=== PATIENT | female | born 1980 | race African-American/Black ===

== ENCOUNTER 2017-01-17 00:13 | Emergency (ER) | payer BC ==
[~2017-01-17] VITALS: Ht 160 cm; Wt 86.2 kg
[~2017-01-17 00:13] MED LIST: HYDR-2758 PO; IBUP200T43 PO
[2017-01-17 00:30] VITALS: BP 123/93
[2017-01-17] MEDS ORDERED: CONTRAST GIVEN MC PRN (02:45)
[2017-01-17] MEDS ORDERED: IOHEXOL 300 MG/ML 75 ML VIAL. IV ONE (02:45)
[2017-01-17] MEDS ORDERED: KETOROLAC 30 MG/ML VIAL. IV ONE (02:45)
--- NOTE | 2017-01-17 03:31 | PHYS DOC ---
General Chief Complaint: ABDOMINAL PAIN Stated Complaint: LEFT SIDE ABDOMINAL AND LEG PAIN Time Seen by MD: 00:32 Source: patient Exam Limitations: no limitations Problems: History of Present Illness Initial Comments Patient is a 36-year-old female who comes to the ED complaining of abdominal discomfort. Patient states she is having left adnexal/lower quadrant abdominal discomfort "feels just like my endometriosis." She follows with Dr. Jarrell for gynecology states she is on medications and prevented her from having visual periods. Pain is described as crampy moderate not relieved with ibuprofen no fever chills nausea vomiting bowel or bladder symptoms. Appetite is intact patient had a prolonged wait prior to my being able to see her due to a critical patient and procedure in the trauma room. ED vital signs are stable patient is driving and understands no narcotic medications can be given if she intends to drive home. Last bowel movement was yesterday described as normal. Patient denies any vaginal discharge or bleeding no dyspareunia. Timing/Duration: 24 hours, constant Severity: moderate Modifying Factors: improves with other Associated Symptoms: other Allergies: Coded Allergies: No Known Drug Allergies (Unverified , 03/19/14) verified with the pt Past Medical History Medical History: other (endometriosis, anxiety, osteoarthritis, ovarian cyst) Surgical History: other ( section tonsillectomy) Family History Significant Family History: no pertinent family hx Social History Smoker: non-smoker Alcohol: none Drugs: none Review of Systems Constitutional: denies chills, denies diaphoresis, denies fever, denies malaise Respiratory: denies cough, denies shortness of breath Cardiovascular: denies chest pain, denies palpitations Gastrointestinal: see HPI Genitourinary: see HPI Musculoskeletal: denies back pain, denies joint swelling, denies neck pain Psychiatric/Neurological: denies headache, denies numbness, denies paresthesia Hematologic/Lymphatic: denies blood clots, denies easy bleeding, denies easy bruising Physical Exam General Appearance: no apparent distress, obese Ear, Nose, Throat: hearing grossly normal, normal ENT inspection Neck: non-tender, supple Respiratory: normal breath sounds, no respiratory distress Cardiovascular: normal peripheral pulses, regular rate, rhythm Gastrointestinal: normal bowel sounds, non tender, soft, no organomegaly, no pulsatile mass Rectal: deferred Back: no CVA tenderness, no vertebral tenderness Extremities: non-tender, normal inspection 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 RN said difficult time accessing IV site. RN just notified me that the patient is wanting to go home and follow-up with her [employer] Dr Jarrell. Patient understands that as she is driving were unable to give sedative medications here in the department but will give Tylenol 3 start pack and a short course of Ambrose and Zofran ODT to get her by until she can get in. Urine negative Departure Time of Disposition: 03:28 Disposition: HOME, SELF-CARE Diagnosis: abdominal pain Condition: IMPROVED Patient Instructions: Abdominal Pain (Nonspecific) Additional Instructions: No driving or operating machinery while taking sedative medications. Rulk-sek-hyuohis stool softeners to avoid constipation related to pain medications. Aggressive hydration with Gatorade or water. Rfxe-eof-torlmqk ibuprofen for baseline discomfort. Prescription: Ambrose 5 mg quantity 15, Zofran ODT A Tylenol 3 starter pack was dispensed to you in the emergency department. Take 1-2 every 6 hours with food as needed for severe pain. Follow-up with your [employer] Dr. Jarrell for next available appointment for hospital recheck and further evaluation and treatment as discussed. Call their office upon opening later this morning to schedule. Return to ED with new or changing symptoms. SABA LAMB DO Jan 17, 2017 03:30
[2017-01-17] MEDS ORDERED: ONDA4TAB10 PO (03:32)
[2017-01-17] MEDS ORDERED: HYDR-971 PO (03:32)
[2017-01-17] MEDS ORDERED: ACETAMINOPHEN/CODEINE 300/30MG 4TABLET STARTPACK. PO ONE ×2 (03:40→03:45)
== END 2017-01-17 03:45 | disposition home or self-care (01) ==
LOC: ER 00:13
DX: R10.32 Left lower quadrant pain (principal); R10.2 Pelvic and perineal pain; M19.90 Unspecified osteoarthritis, unspecified site; F41.9 Anxiety disorder, unspecified; Z98.890 Other specified postprocedural states
CPT/HCPCS: 81025; 99284

== ENCOUNTER 2019-06-22 10:10 | Emergency (ER) | payer BC ==
[~2019-06-22] VITALS: Ht 160 cm; Wt 89.0 kg
[~2019-06-22 10:10] MED LIST changes: +HYDR-2155 PO; -HYDR-2758 PO; +HYDR-3165 PO; -IBUP200T43 PO; +IBUP200T44 PO; +ONDA4TAB10 PO
[2019-06-22 10:17] VITALS: BP 131/93
[2019-06-22] MEDS ORDERED: IV NORMAL SALINE 1,000ML 1,000 ML IV SCH (10:20)
[2019-06-22 10:38] LABS: BASO # 0.1 x10^3/uL (0.0-0.2); BASO % 1 % (0-3); EOS # 0.1 x10^3/uL (0.0-0.7); EOS % 1 % (0-3); HEMATOCRIT 36.9 % (36.0-47.0); HEMOGLOBIN 12.3 g/dL (12.0-15.5); LYMPH # 1.5 x10^3/uL (1.0-4.8); LYMPH % 29 % (24-48); MEAN CORPUSCULAR HEMOGLOBIN 28 pg (25-35); MEAN CORPUSCULAR HGB CONC 33 g/dL (31-37); MEAN CORPUSCULAR VOLUME 85 fL (79-100); MONO # 0.5 x10^3/uL (0.0-1.1); MONO % 10 % (0-9); NEUT % 59 % (31-73); PLATELET COUNT 469 x10^3/uL (140-400); RED BLOOD COUNT 4.34 x10^6/uL (3.50-5.40); RED CELL DISTRIBUTION WIDTH 14.1 % (11.5-14.5); WHITE BLOOD COUNT 5.1 x10^3/uL (4.0-11.0)
--- NOTE | 2019-06-22 10:38 | PHYS DOC ---
Past History Past Medical History: Anxiety, Arthritis, Ovarian Cyst, Other Past Surgical History: , Tonsillectomy Alcohol Use: None Drug Use: None General Adult EDM: Chief Complaint: CHEST PAIN HPI: HPI: 39-year-old female presents with chest pain. The pain started yesterday while she was at work. 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 It was not worse with exertion. It did not seem to improve with rest. It started as a sharp pain between her shoulder blades. It faded throughout the evening. When the patient woke up it was still there, but mild. It also was radiating around to her central chest. She went ahead and went to work. After getting to work the pain increased in her chest up to a 7 out of 10. She describes it as a heaviness with a sharp quality. It is not a stabbing pain. She went to her primary care physician who gave her 324 of aspirin and nitro spray. This reduce the pain to 1 out of 10. The patient's current pain level is 1 out of 10. She has never had chest pain before. She has no cardiac history. Review of Systems: Review of Systems: Constitutional: Denies fever or chills Eyes: Denies change in visual acuity HENT: Denies nasal congestion or sore throat Respiratory: Denies cough or shortness of breath Cardiovascular: Denies chest pain or edema GI: Denies abdominal pain, nausea, vomiting, bloody stools or diarrhea : Denies dysuria Musculoskeletal: Denies back pain or joint pain Integument: Denies rash Neurologic: Denies headache, focal weakness or sensory changes Endocrine: Denies polyuria or polydipsia Lymphatic: Denies swollen glands Psychiatric: Denies depression or anxiety Heart Score: HEART Score for Chest Pain: HEART Score for Chest Pain Response (Comments) Value History Slighlty/Non-Suspicious 0 ECG Normal 0 Age < 45 0 Risk Factors 1 or 2 Risk Factors 1 Troponin < Normal Limit 0 Total 1 Risk Factors: Risk Factors: DM, Current or recent (<one month) smoker, HTN, HLP, family history of CAD, obesity. Risk Scores: Score 0 - 3: 2.5% MACE over next 6 weeks - Discharge Home Score 4 - 6: 20.3% MACE over next 6 weeks - Admit for Clinical Observation Score 7 - 10: 72.7% MACE over next 6 weeks - Early Invasive Strategies Current Medications: Current Meds: Current Medications Medications (Trade) Dose Ordered Sig/Macho Start Time Stop Time Status Last Admin Dose Admin Sodium Chloride 1,000 ml @ 1,000 mls/hr Q1H 06/22/19 10:20 06/22/19 11:19 Allergies: Allergies: Allergies Coded Allergies Type Severity Reaction Last Updated Verified No Known Drug Allergies 03/19/14 No Physical Exam: PE: Constitutional: Well developed, obese, well nourished, no acute distress, non- toxic appearance. [] HENT: Normocephalic, atraumatic, bilateral external ears normal, oropharynx moist, no oral exudates, nose normal. [] Eyes: PERRLA, EOMI, conjunctiva normal, no discharge. [] Neck: Normal range of motion, no tenderness, supple, no stridor. [] Cardiovascular: Heart rate regular rhythm, no murmur [] Lungs & Thorax: Bilateral breath sounds clear to auscultation [] Abdomen: Bowel sounds normal, soft, no tenderness, no masses, no pulsatile masses. [] Skin: Warm, dry, no erythema, no rash. [] Back: No tenderness, no CVA tenderness. [] Extremities: No tenderness, no cyanosis, no clubbing, ROM intact, no edema. [] Neurologic: Alert and oriented X 3, normal motor function, normal sensory function, no focal deficits noted. [] Psychologic: Affect normal, judgement normal, mood normal. [] Current Patient Data: Vital Signs: Vital Signs Date Time Temp Pulse Resp B/P (MAP) Pulse Ox O2 Delivery O2 Flow Rate FiO2 06/22/19 10:17 98.0 75 16 131/93 (106) 100 Room Air EKG: EKG: Sinus rhythm, rate 71, normal axis, no ST elevations or depressions. [] Radiology/Procedures: Radiology/Procedures: [] Impressions: PORTABLE CHEST 1V Clinical History: Chest pain Technique: AP view of the chest was obtained at 06/22/2019 10:20 AM. Comparison: None. Findings: The cardiomediastinal silhouette is normal. The pulmonary vasculature is normal. The lungs and pleural margins are clear. Impression: No evidence of an acute cardiopulmonary process. Electronically signed by: Xenia Celis III, MD (06/22/2019 10:52 AM) [id number] DICTATED AND SIGNED BY: XENIA CELIS III, MD DATE: 06/22/19 1052 CC: RAMIREZ ODONNELL DO; MIGUEL ANGEL ROBBINS MD ~ Course & Med Decision Making: Course & Med Decision Making Pertinent Labs and Imaging studies reviewed. (See chart for details) The patient's labs are unremarkable. Her chest x-ray is unremarkable. Her troponin is negative. Her EKG is unremarkable. The patient's pain was made better with nitro, but this does not rule out alternative explanations to cardiac pain. I do not see any evidence of cardiopulmonary cause at this time. Advised the patient follow-up closely with her primary care physician. If this pain returns, she should come back to the emergency room. Her heart score is a 1. She is stable for discharge at this time. [] Dragon Disclaimer: Dragon Disclaimer: This electronic medical record was generated, in whole or in part, using a voice recognition dictation system. Departure Departure: Impression: Primary Impression: Chest pain Qualified Codes: R07.9 - Chest pain, unspecified Disposition: HOME, SELF-CARE Condition: STABLE Referrals: MIGUEL ANGEL ROBBINS MD (PCP) Patient Instructions: Chest Pain (Nonspecific), [id number] RAMIREZ ODONNELL DO Jun 22, 2019 10:38
[2019-06-22 10:46] LABS: CALCIUM 8.7 mg/dL (8.5-10.1); CREATININE 0.7 mg/dL (0.6-1.0); GFR 113.9
[2019-06-22 10:54] LABS: ALBUMIN 3.7 g/dL (3.4-5.0); ALBUMIN/GLOBULIN RATIO 1.2 (1.0-1.7); TOTAL BILIRUBIN 0.4 mg/dL (0.2-1.0); TOTAL PROTEIN 6.9 g/dL (6.4-8.2)
--- NOTE | 2019-06-22 10:56 | RAD ---
PORTABLE CHEST 1V Clinical History: Chest pain Technique: AP view of the chest was obtained at 06/22/2019 10:20 AM. Comparison: None. Findings: The cardiomediastinal silhouette is normal. The pulmonary vasculature is normal. The lungs and pleural margins are clear. Impression: No evidence of an acute cardiopulmonary process. Electronically signed by: Contreras Celis III, MD (06/22/2019 10:52 AM) [id number]
--- NOTE | 2019-06-22 17:45 | EKG ---
[address] [address] Test Date: 2019-06-22 Test Time: 10:28:23 Pat Name: OLYA KEVIN Department: Room: Gender: F Director Payment: : 1980 Requested By: RAMIREZ ODONNELL Order Number: [id number] Reading MD: Christ Harris MD Measurements Intervals [place] Rate: 71 P: 31 AR: 132 QRS: 24 QRSD: 84 T: 21 QT: 380 QTc: 418 Interpretive Statements SINUS RHYTHM Electronically Signed On 06-23-2019 9:42:33 CDT by Christ Harris MD
== END 2019-06-22 11:20 | disposition home or self-care (01) ==
LOC: ER 10:10
DX: R07.89 Other chest pain (principal); F41.9 Anxiety disorder, unspecified; M19.90 Unspecified osteoarthritis, unspecified site
CPT/HCPCS: 36415; 71045; 80053; 84484; 85025; 93005; 99285

== ENCOUNTER 2020-11-08 16:01 | Emergency (ER) | payer OTHER, BC ==
[~2020-11-08] VITALS: Ht 160 cm; Wt 88.4 kg
[2020-11-08 16:23] VITALS: BP 155/80
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
[2020-11-08] MEDS: KETOROLAC 30 MG/ML VIAL. IM ONE (16:56)
[2020-11-08] MEDS ORDERED: HYDR-2155 PO (17:03)
[2020-11-08] MEDS ORDERED: ORPH-16 PO (17:03)
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
== END 2020-11-08 17:16 | disposition home or self-care (01) ==
LOC: ER 16:01
DX: M25.562 Pain in left knee (principal); M54.5 Low back pain; M25.552 Pain in left hip; F41.9 Anxiety disorder, unspecified; M19.90 Unspecified osteoarthritis, unspecified site; V89.2XXA Person injured in unspecified motor-vehicle accident, traffic, initial encounter; Y93.I9 Activity, other involving external motion; Y92.89 Other specified places as the place of occurrence of the external cause; Y99.8 Other external cause status
CPT/HCPCS: 73562; 96372; 99283; J1885

== ENCOUNTER 2021-04-04 16:51 | Emergency (ER) | payer BC, OTHER ==
[~2021-04-04] VITALS: Ht 160 cm; Wt 88.4 kg
[~2021-04-04 16:51] MED LIST changes: +ORPH-16 PO
[2021-04-04] MEDS ORDERED: MORPHINE SULFATE 2 MG/ML DISP.SYRIN. IV ONE (17:15)
[2021-04-04] MEDS ORDERED: ONDANSETRON PF 4 MG/2 ML VIAL. IVP ONE (17:15)
[2021-04-04] MEDS ORDERED: IV NORMAL SALINE 1,000ML 1,000 ML IV ONE (17:15)
--- NOTE | 2021-04-04 17:31 | PHYS DOC ---
Past History Past Medical History: Anxiety, Arthritis, Endometriosis, Ovarian Cyst, Other Additional Past Medical Histor: endometreosis, ovarian cyst (JESSICA BUTLER PERL DEVELOPER) Past Surgical History: , Tonsillectomy (JESSICA BUTLER PERL DEVELOPER) Smoking: Non-smoker Alcohol Use: None Drug Use: None (JESSICA BUTLER APRN) General Adult EDM: Chief Complaint: ABDOMINAL PAIN HPI: HPI: Patient is a 40-year-old female who presents today with abdominal pain. Patient does state that she is COVID positive at this time. Patient states that she has abdominal pain located mostly in the left lower quadrant that started about 9 AM this morning she said is severe in nature and stabbing, she does have some nausea associated with that but no diarrhea. Patient states she had a normal bowel movement yesterday none today. Patient did states she started her menstrual cycle yesterday and she does have a history of endometriosis for which she is managed by Dr. Candace Flor, WARD NURSE. Patient states recently she got pl aced on a medication for her endometriosis to help with management of it and she has been taking that regularly over the last couple of weeks. Patient also states that she has not had a normal menstrual period in the last 3 months due to her endometriosis and this is her first menstrual cycle in 3 months. (JESSICA BUTLER PERL DEVELOPER) Review of Systems: Review of Systems: Constitutional: Denies fever or chills Eyes: Denies change in visual acuity HENT: Denies nasal congestion or sore throat Respiratory: Denies cough or shortness of breath Cardiovascular: Denies chest pain or edema GI: Abdominal pain, nausea, denies diarrhea or vomiting. : Denies dysuria Musculoskeletal: Denies back pain or joint pain Integument: Denies rash Neurologic: Denies headache, focal weakness or sensory changes Endocrine: Denies polyuria or polydipsia Lymphatic: Denies swollen glands Psychiatric: Denies depression or anxiety (JESSICA BUTLER APRN) Current Medications: Current Meds: Current Medications Medications (Trade) Dose Ordered Sig/Macho Start Time Stop Time Status Last Admin Dose Admin Morphine Sulfate (Morphine 2mg Syringe) 2 mg 1X ONCE 04/04/21 17:15 04/04/21 17:18 DC Ondansetron HCl (Zofran) 4 mg 1X ONCE 04/04/21 17:15 04/04/21 17:18 DC Sodium Chloride 1,000 ml @ 1,000 mls/hr 1X ONCE 04/04/21 17:15 04/04/21 18:14 (JESSICA BUTLER PERL DEVELOPER) Allergies: Allergies: Allergies Coded Allergies Type Severity Reaction Last Updated Verified No Known Drug Allergies 03/19/14 No (JESSICA BUTLER APRN) Physical Exam: PE: Constitutional: Well developed, well nourished, mild distress, non-toxic appearance. [] HENT: Normocephalic, atraumatic, bilateral external ears normal, oropharynx moist, no oral exudates, nose normal. [] Eyes: PERRLA, EOMI, conjunctiva normal, no discharge. [] Neck: Normal range of motion, no tenderness, supple, no stridor. [] Cardiovascular:Heart rate regular rhythm, no murmur [] Lungs & Thorax: Bilateral breath sounds clear to auscultation [] Abdomen: Bowel sounds hypoactive, abdomen tender to touch in the left lower quadrant. McBurney's point is negative no epigastric tenderness noted patient is currently on her menstrual cycle. Skin: Warm, dry, no erythema, no rash. [] Back: No tenderness, no CVA tenderness. [] Extremities: No tenderness, no cyanosis, no clubbing, ROM intact, no edema. [] Neurologic: Alert and oriented X 3, normal motor function, normal sensory function, no focal deficits noted. [] Psychologic: Affect normal, judgement normal, mood normal. [] (JESSICA BUTLER PERL DEVELOPER) Current Patient Data: Labs: Laboratory Tests Test 04/04/21 17:22 04/04/21 17:30 04/04/21 18:34 Urine Collection Type Unknown Urine Color Red Urine Clarity Hazy Urine pH Urine Specific [place] Urine Protein Urine Glucose (UA) mg/dL Urine Ketones (Stick) mg/dL Urine Blood Urine Nitrite Urine Bilirubin Urine Urobilinogen Dipstick mg/dL Urine Leukocyte Esterase Urine RBC Tntc /HPF Urine WBC 1-4 /HPF Urine Squamous Epithelial Cells Occ /LPF Urine Bacteria Few /HPF Urine Test Negative White Blood Count 6.0 x10^3/uL Red Blood Count 4.63 x10^6/uL Hemoglobin 13.2 g/dL Hematocrit 40.6 % Mean Corpuscular Volume 88 fL Mean Corpuscular Hemoglobin 29 pg Mean Corpuscular Hemoglobin Concent 33 g/dL Red Cell Distribution Width 15.4 % Platelet Count 397 x10^3/uL Neutrophils (%) (Auto) 68 % Lymphocytes (%) (Auto) 20 % Monocytes (%) (Auto) 10 % Eosinophils (%) (Auto) 0 % Basophils (%) (Auto) 2 % Neutrophils # (Auto) 4.1 x10^3uL Lymphocytes # (Auto) 1.2 x10^3/uL Monocytes # (Auto) 0.6 x10^3/uL Eosinophils # (Auto) 0.0 x10^3/uL Basophils # (Auto) 0.1 x10^3/uL Sodium Level 137 mmol/L Potassium Level 3.8 mmol/L Chloride Level 102 mmol/L Carbon Dioxide Level 23 mmol/L Anion Gap 12 Blood Urea Nitrogen 8 mg/dL Creatinine 0.8 mg/dL Estimated GFR (Cockcroft-Gault) 97.1 BUN/Creatinine Ratio 10 Glucose Level 96 mg/dL Calcium Level 8.1 mg/dL Total Bilirubin 0.2 mg/dL Aspartate Amino Transf (AST/SGOT) 15 U/L Alanine Aminotransferase (ALT/SGPT) 22 U/L Alkaline Phosphatase 67 U/L Total Protein 7.6 g/dL Albumin 4.0 g/dL Albumin/Globulin Ratio 1.1 Current Medications Medications (Trade) Dose Ordered Sig/Macho Route PRN Reason Start Time Stop Time Status Last Admin Dose Admin Sodium Chloride 1,000 ml @ 1,000 mls/hr 1X ONCE IV 04/04/21 17:15 04/04/21 18:14 DC 04/04/21 17:32 Morphine Sulfate (Morphine 2mg Syringe) 2 mg 1X ONCE IV 04/04/21 17:15 04/04/21 17:18 DC 04/04/21 17:32 Ondansetron HCl (Zofran) 4 mg 1X ONCE IVP 04/04/21 17:15 04/04/21 17:18 DC 04/04/21 17:32 Metoclopramide HCl (Reglan Vial) 10 mg 1X ONCE IVP 04/04/21 18:15 04/04/21 18:16 DC 04/04/21 18:15 Ketorolac Tromethamine (Toradol 30mg Vial) 30 mg 1X ONCE IVP 04/04/21 19:30 04/04/21 19:31 DC 04/04/21 19:29 Ketorolac Tromethamine (Toradol 30mg Vial) 30 mg STK-MED ONCE .ROUTE 04/04/21 19:28 04/04/21 19:28 DC Iohexol (Omnipaque 300 Mg/ml) 75 ml 1X ONCE IV 04/04/21 19:45 04/04/21 19:46 DC 04/04/21 19:52 Vital Signs: Vital Signs Date Time Temp Pulse Resp B/P (MAP) Pulse Ox O2 Delivery O2 Flow Rate FiO2 04/04/21 19:20 78 18 142/81 (101) 100 Room Air 04/04/21 17:32 16 99 04/04/21 17:05 98.3 86 22 141/81 (101) 100 Room Air Vital Signs Date Time Temp Pulse Resp B/P (MAP) Pulse Ox O2 Delivery O2 Flow Rate FiO2 04/04/21 17:05 98.3 86 22 141/81 (101) 100 Room Air (JESSICA BUTLER PERL DEVELOPER) EKG: EKG: [] (JESSICA BUTLER PERL DEVELOPER) Radiology/Procedures: Radiology/Procedures: []REASON: LLQ pain PROCEDURE: PELVIS COMPLETE EXAMINATION: US PELVIS COMPLETE INDICATION: 40 years, Female, left lower quadrant abdominal pain. COMPARISON: CT dated 04/19/2018 TECHNIQUE: Transabdominal ultrasound of the pelvis was performed with grayscale, spectral, and color doppler imaging. FINDINGS: UTERUS: Position: Anteverted Measures: 8.5 x 5.4 x 3.8 cm. Uterine/Endometrial Morphology: Unremarkable. Endometrial Thickness: Intrauterine contraceptive device visualized. RIGHT OVARY/ADNEXA: Measures: 2.2 x 2.2 x 1.2 cm. Right Ovarian Morphology: Unremarkable. Right Ovarian Color And Spectral Doppler Flow: Normal. LEFT OVARY/ADNEXA: Measures: 3.1 x 2.6 x 1.4 cm. Left Ovarian Morphology: Unremarkable. Left Ovarian Color And Spectral Doppler Flow: Normal. OTHER: Fluid/Cul-De-Sac: None IMPRESSION: Intrauterine contraceptive device is in place. Otherwise, unremarkable tr ansabdominal pelvic ultrasound. Electronically signed by: Garry Alvarez MD (04/04/2021 6:28 PM) UIC-ALSA STATUS: REG ER ORD. PHYSICIAN: JESSICA BUTLER APRN REASON: LLQ abdominal pain OMNI 300 [id number] PROCEDURE: CT ABD PELV W/ IV CONTRST ONLY Exam: CT abdomen/pelvis with intravenous contrast Indication: Left lower quadrant abdominal pain Comparison: None Technique: Helical CT imaging performed of the abdomen and pelvis after the intravenous administration of 75 mL Omnipaque 300 contrast. Sagittal and coronal reformats were obtained. One or more of the following individualized dose reduction techniques were utilized for this examination: 1. Automated exposure control 2. Adjustment of the mA and/or kV according to patient size 3. Use of iterative reconstruction technique. Findings: Lower chest: Normal. Liver: Normal. Gallbladder/Biliary Tree: Normal. Pancreas: Normal. Spleen: Normal. Adrenal Glands: Normal. Kidneys/Ureters/Bladder: Normal. No hydronephrosis.. Reproductive Organs: The uterus is anteverted. There is an intrauterine device is low in position in the lower uterine segment rather than in the fundus. No adnexal mass. Stomach, small bowel, and colon: The stomach, small bowel, appendix, and colon are normal. Vasculature: No aortic aneurysm. Lymph Nodes: No lymphadenopathy. Peritoneum and retroperitoneum: No free fluid or free air. Bones: Normal. Miscellaneous: Partially visualized right breast prosthesis. IMPRESSION: Low position of intrauterine device in the lower uterine segment. Otherwise unremarkable CT of the abdomen and pelvis. Electronically signed by: Vannessa Valente MD (04/04/2021 8:29 PM) [id number] DICTATED AND SIGNED BY: VANNESSA VALENTE MD DATE: 04/04/212020 CC: JESSICA BUTLER APRN; LUISA ROCK MD; LYLA STOVER MD ~MTH0 0 (JESSICA BUTLER APRN) Heart Score: C/O Chest Pain: N/A Risk Factors: Risk Factors: DM, Current or recent (<one month) smoker, HTN, HLP, family history of CAD, obesity. Risk Scores: Score 0 - 3: 2.5% MACE over next 6 weeks - Discharge Home Score 4 - 6: 20.3% MACE over next 6 weeks - Admit for Clinical Observation Score 7 - 10: 72.7% MACE over next 6 weeks - Early Invasive Strategies (JESSICA BUTLER APRN) Course & Med Decision Making: Course & Med Decision Making Pertinent Labs and Imaging studies reviewed. (See chart for details) 2043 reviewed radiological and laboratory results with patient. Did inform her that her ultrasound was normal for any ovarian torsion or ovarian cyst, her CT scan did not show any infectious or surgical process at this time. Patient will be sent home to follow-up with Dr. Flor and her WARD NURSE for further management of her abdominal pain related to her menstrual cycle. Patient will be given Tylenol 3's to go, patient will be recommended to follow a clear liquid diet for the next 24 hours and then advance as tolerated. Patient verbalized understanding of all of this and is agreeable with the plan of care. (JESSICA BUTLER APRN) Course & Med Decision Making Did not see or evaluate patient. Did not discuss patient with BABY SITTER. Agree with BABY SITTER's work-up and disposition per note (RANDY ZHANG MD) Dragon Disclaimer: Dragon Disclaimer: This electronic medical record was generated, in whole or in part, using a voice recognition dictation system. (JESSICA BUTLER APRN) Departure Departure: Impression: Primary Impression: Abdominal pain Qualified Codes: R10.30 - Lower abdominal pain, unspecified Additional Impression: COVID-19 Disposition: HOME / SELF CARE / HOMELESS Condition: STABLE Referrals: LYLA STOVER MD (PCP) Patient Instructions: Abdominal Pain, Clear Liquid Diet Additional Instructions: Tylenol 3's take 1 tablet every 6 hours as needed for severe pain, use with caution may cause drowsiness do not operate heavy machinery or drive while taking this medication [id number] ibuprofen as label directed for abdominal pain as well for mild to moderate pain Clear liquid diet for the next 24 to 48 hours and then advance as tolerated Follow-up with Dr. Candace Flor your WARD NURSE for further management of your lower abdominal pain related to your endometriosis. JESSICA BUTLER APRN Apr 04, 2021 17:31 RANDY ZHANG MD Apr 04, 2021 21:38
[2021-04-04 17:41] LABS: CLARITY,URINE HAZY; COLOR,URINE RED
[2021-04-04 17:42] LABS: U PREG PATIENT NEGATIVE (NEG)
[2021-04-04 17:46] LABS: BACTERIA,URINE FEW /HPF (0-FEW); RBC,URINE TNTC /HPF (0-2); SQUAMOUS EPITHELIAL CELL,UR OCC /LPF
[2021-04-04 18:01] LABS: BASO # 0.1 x10^3/uL (0.0-0.2); BASO % 2 % (0-3); EOS % 0 % (0-3); HEMATOCRIT 40.6 % (36.0-47.0); HEMOGLOBIN 13.2 g/dL (12.0-15.5); LYMPH # 1.2 x10^3/uL (1.0-4.8); LYMPH % 20 % (24-48); MEAN CORPUSCULAR HEMOGLOBIN 29 pg (25-35); MEAN CORPUSCULAR HGB CONC 33 g/dL (31-37); MEAN CORPUSCULAR VOLUME 88 fL (79-100); MONO # 0.6 x10^3/uL (0.0-1.1); MONO % 10 % (0-9); NEUT # 4.1 x10^3uL (1.8-7.7); NEUT % 68 % (31-73); PLATELET COUNT 397 x10^3/uL (140-400); RED BLOOD COUNT 4.63 x10^6/uL (3.50-5.40); RED CELL DISTRIBUTION WIDTH 15.4 % (11.5-14.5)
[2021-04-04] MEDS ORDERED: METOCLOPRAMIDE HCL 10 MG/2 ML VIAL. IVP ONE (18:15)
--- NOTE | 2021-04-04 18:30 | RAD ---
EXAMINATION: US PELVIS COMPLETE INDICATION: 40 years, Female, left lower quadrant abdominal pain. COMPARISON: CT dated 04/19/2018 TECHNIQUE: Transabdominal ultrasound of the pelvis was performed with grayscale, spectral, and color doppler imaging. FINDINGS: UTERUS: Position: Anteverted Measures: 8.5 x 5.4 x 3.8 cm. Uterine/Endometrial Morphology: Unremarkable. Endometrial Thickness: Intrauterine contraceptive device visualized. RIGHT OVARY/ADNEXA: Measures: 2.2 x 2.2 x 1.2 cm. Right Ovarian Morphology: Unremarkable. Right Ovarian Color And Spectral Doppler Flow: Normal. LEFT OVARY/ADNEXA: Measures: 3.1 x 2.6 x 1.4 cm. Left Ovarian Morphology: Unremarkable. Left Ovarian Color And Spectral Doppler Flow: Normal. OTHER: Fluid/Cul-De-Sac: None IMPRESSION: Intrauterine contraceptive device is in place. Otherwise, unremarkable transabdominal pelvic ultrasou nd. Electronically signed by: Garry Alvarez MD (04/04/2021 6:28 PM) BRIANNA
[2021-04-04 19:08] LABS: CALCIUM 8.1 mg/dL (8.5-10.1); CREATININE 0.8 mg/dL (0.6-1.0); GFR 97.1; POTASSIUM 3.8 mmol/L (3.5-5.1)
[2021-04-04 19:14] LABS: ALBUMIN/GLOBULIN RATIO 1.1 (1.0-1.7); TOTAL BILIRUBIN 0.2 mg/dL (0.2-1.0); TOTAL PROTEIN 7.6 g/dL (6.4-8.2)
[2021-04-04] MEDS ORDERED: KETOROLAC 30 MG/ML VIAL. ONE (19:28)
[2021-04-04] MEDS ORDERED: KETOROLAC 30 MG/ML VIAL. IVP ONE (19:30)
[2021-04-04] MEDS ORDERED: IOHEXOL 300 MG/ML 75 ML VIAL. IV ONE (19:45)
--- NOTE | 2021-04-04 20:31 | RAD ---
Exam: CT abdomen/pelvis with intravenous contrast Indication: Left lower quadrant abdominal pain Comparison: None Technique: Helical CT imaging performed of the abdomen and pelvis after the intravenous administratio n of 75 mL Omnipaque 300 contrast. Sagittal and coronal reformats were obtained. One or more of the following individualized dose reduction techniques were utilized for this examinat ion: 1. Automated exposure control 2. Adjustment of the mA and/or kV according to patient size 3. Use of iterative reconstruction technique. Findings: Lower chest: Normal. Liver: Normal. Gallbladder/Biliary Tree: Normal. Pancreas: Normal. Spleen: Normal. Adrenal Glands: Normal. Kidneys/Ureters/Bladder: Normal. No hydronephrosis.. Reproductive Organs: The uterus is anteverted. There is an intrauterine device is low in position in the lower uterine segment rather than in the fundus. No adnexal mass. Stomach, small bowel, and colon: The stomach, small bowel, appendix, and colon are normal. Vasculature: No aortic aneurysm. Lymph Nodes: No lymphadenopathy. Peritoneum and retroperitoneum: No free fluid or free air. Bones: Normal. Miscellaneous: Partially visualized right breast prosthesis. IMPRESSION: Low position of intrauterine device in the lower uterine segment. Otherwise unremarkable CT of the abdomen and pelvis. Electronically signed by: Vannessa Valente MD (04/04/2021 8:29 PM) [id number]
[2021-04-04] MEDS ORDERED: ACETAMINOPHEN/CODEINE 300/30MG 4TABLET STARTPACK. PO ONE ×2 (20:53→21:00)
[2021-04-04 20:59] VITALS: BP 143/87
== END 2021-04-04 21:02 | disposition home or self-care (01) ==
LOC: ER 16:51
DX: U07.1 COVID-19 (principal); R10.32 Left lower quadrant pain
CPT/HCPCS: 36415; 74177; 76856; 80053; 81001; 81025; 85025; 96361; 96374; 96375; 99284; J1885; J2270; J2405; J2765; J7030; Q9967